=== PATIENT | female | born 1995 | race Caucasian/White ===

== ENCOUNTER 2021-06-28 19:25 | Emergency (ER) | payer OTHER ==
[~2021-06-28 19:25] MED LIST: BACTRIM DS TAB1 EACH PO; BENTYL 20MG TAB20 MG PO; IBUPROFEN600 MG PO; NORCO 5-325 TA1 EACH PO; ZOFRAN ODT 4 MG4 MG SL
== END 2021-06-28 22:45 | disposition left against medical advice (07) ==
LOC: ER1 19:25
DX: Z53.21 Procedure and treatment not carried out due to patient leaving prior to being seen by health care provider (principal)